=== PATIENT | female | born 1955 | race Caucasian/White ===

== ENCOUNTER → 2016-10-24 | Outpatient (CLI) | payer OTHER ==
[2016-10-24 09:37] VITALS: RESP 14
[2016-10-24 09:44] VITALS: BP 153/89; PULSE 80
--- NOTE | 2016-10-24 11:32 | CT ---
EXAMINATION TYPE: CT chest w con DATE OF EXAM: 10/24/2016 10:00 AM COMPARISON: NONE HISTORY: Patient complains of difficulty breathing with a history of breast CA. CT DLP: 644 mGycm Automated exposure control for dose reduction was used. CONTRAST: CT scan of the chest is performed with IV Contrast, patient injected with 100 mL of Omnipaque 300. FINDINGS: There has been a previous left mastectomy. The lungs are clear. No parenchymal nodules are seen. No significant interstitial changes noted. There is no significant axillary, internal mammary, mediastinal or hilar adenopathy. There is no pleu ral or pericardial fluid. The heart is at the upper limits of normal in size. Visualized upper abdominal structures are normal. There is mild hypertrophic spondylosis within the spine. No bony destructive lesion is seen. IMPRESSION: 1. STATUS POST LEFT MASTECTOMY. 2. NO SIGNIFICANT ABNORMALITY SEEN ON CHEST CT. 3. MILD DEGENERATIVE CHANGE OF THE SPINE.
== END | disposition home or self-care (01) ==
LOC: RADCTMAIN 08:52
PROVIDERS: ATTEND Family Medicine
DX: R07.81 Pleurodynia (principal)
CPT/HCPCS: 71260; Q9967

== ENCOUNTER 2018-12-27 18:48 | Emergency (ER) | payer BC, MEDICARE ==
[2018-12-27 19:03] VITALS: RESP 18
--- NOTE | 2018-12-27 19:24 | ED ---
General Adult HPI - General Chief complaint: Back Pain/Injury Stated complaint: Poss kidney stones Time Seen by Provider: 12/27/18 19:07 Source: patient, RN notes reviewed, old records reviewed Mode of arrival: ambulatory Limitations: no limitations - History of Present Illness Initial comments: 63-year-old female patient past medical history of breast cancer approximately 10 years ago status post double mastectomy, in remission, presents to ED with chief complaint of approximately 1 month of lumbar back pain. Patient reports that this began after working on a tractor. Patient reports that the pain is in her right paralumbar back region and radiates to her midline lumbar spine. This area is nontender to palpation. Patient denies any flank pain, patient denies any dysuria or hematuria. Patient denies any loss of bowel or bladder control, saddle anesthesia, lower extremity weakness. Patient denies any anterior abdominal pain. Patient denies all other complaints. Systemic: Pt denies fatigue, fever/chills, rash. Pt denies weakness, night sweats, weight loss. Neuro: Pt denies headache, visual disturbances, syncope or pre-syncope. HEENT: Pt denies ocular discharge or irritation, otalgia, rhinorrhea, pharyngitis or notable lymphadenopathy. Cardiopulmonary: Pt denies chest pain, SOB, heart palpitations, dyspnea on exertion. Abdominal/GI: Pt denies abdominal pain, n/v/d. : Pt denies dysuria, burning w/ urination, frequency/urgency. Denies new onset urinary or bowel incontinence. MSK: Pt denies loss of strength or function in extremities. Neuro: Pt denies new onset weakness, paresthesias. - Related Data Home Medications Medication Instructions Recorded Confirmed Acetaminophen [Tylenol Arthritis] 650 mg PO Q8H 12/27/18 12/27/18 Albuterol Nebulized [Ventolin 2.5 mg INHALATION RT-QID PRN 12/27/18 12/27/18 Nebulized] Glimepiride [Amaryl] 2 mg PO BID 12/27/18 12/27/18 Ipratropium Nebulized [Atrovent 0.5 mg INHALATION RT-QID PRN 12/27/18 12/27/18 Nebulized 0.2 MG/ML] Mometasone/Formoterol [Dulera 100 2 puff INHALATION RT-BID 12/27/18 12/27/18 Mcg/5 Mcg Inhaler] Torsemide [Demadex] 20 mg PO DAILY PRN 12/27/18 12/27/18 Previous Rx's Medication Instructions Recorded Cyclobenzaprine [Flexeril] 1 - 2 tab PO TID #20 tablet 12/27/18 Allergies Allergy/AdvReac Type Severity Reaction Status Date / Time adhesive tape Allergy Rash/Hives Verified 12/27/18 19:31 alcohol Allergy Rash/Hives Verified 12/27/18 19:31 cephalexin [From Keflex] Allergy Rash/Hives Verified 12/27/18 19:31 Iodinated Contrast- Oral and Allergy Rash/Hives Verified 12/27/18 19:31 IV Dye meperidine [From Demerol] Allergy Rash/Hives Verified 12/27/18 19:31 methylprednisolone Allergy Rash/Hives Verified 12/27/18 19:31 [From Medrol] nystatin Allergy Rash/Hives Verified 12/27/18 19:31 Penicillins Allergy Rash/Hives Verified 12/27/18 19:31 Sulfa (Sulfonamide Allergy Rash/Hives Verified 12/27/18 19:31 Antibiotics) Review of Systems ROS Statement: Those systems with pertinent positive or pertinent negative responses have been documented in the HPI. ROS Other: All systems not noted in ROS Statement are negative. Past Medical History Past Medical History: Coronary Artery Disease (CAD), Diabetes Mellitus Additional Past Medical History / Comment(s): breast cancer History of Any Multi-Drug Resistant Organisms: None Reported Past Surgical History: Breast Surgery, Hysterectomy Past Psychological History: No Psychological Hx Reported Smoking Status: Never smoker Past Alcohol Use History: None Reported Past Drug Use History: None Reported General Exam - General Exam Comments Initial Comments: Constitutional: NAD, AOX3, Pt has pleasant affect. HEENT: NC/AT, trachea midline, neck supple, no lymphadenopathy. Posterior pharynx non erythematous, without exudates. External ears appear normal, without discharge. Mucous membranes moist. Eyes PERRLA, EOM intact. There is no scleral icterus. No pallor noted. Cardiopulmonary: RRR, no murmurs, rubs or gallops, no JVD noted. Lungs CTAB in anterior and posterior celeste. No peripheral edema. Abdominal exam: Abdomen soft and non-distended. Abdomen non-tender to palpation in all 4 quadrants. Bowel sounds active in LLQ. No hepatosplenomegaly. No ecchymosis Neuro: CN II-XII grossly intact. No nuchal rigidity. No raccon eyes, no ivy sign, no hemotympanum. No cervical spinal tenderness. MSK: No midline cervical thoracic lumbar tenderness. Straight-leg raise negative bilaterally. No posterior calf tenderness bilaterally, homans sign negative bilaterally. Posterior tibialis and radial pulse +2 bilaterally. Sensation intact in upper and lower extremities. Full active ROM in upper and lower extremities, 5/5 stregnth. Limitations: no limitations Course Vital Signs 12/27/18 18:57 Temperature 98.3 F Pulse Rate 73 Respiratory 18 Rate Blood Pressure 144/77 O2 Sat by Pulse 94 L Oximetry Medical Decision Making - Medical Decision Making 63-year-old female patient with past medical history of breast cancer in remission presents to ED if 1 month of lumbar back pain. Patient works that she has right paralumbar as well as midline lumbar back pain after working on a tractor approximately one month ago. Denies any red flag symptoms. Patient vital signs stable, afebrile. Physical exam didn't display acute pathology. Plain film of lumbar spine displayed mild multilevel degenerative disc disease, more moderate anterior endplate spondylolysis at L1-L2. Facet arthropathy lower lumbar spine. No vertebral compression, collapse or malalignment. UA was not impressive. Patient was discharged with muscle relaxer. Patient to follow up with primary care provider as well as orthopedic consult. Patient return to ER if condition worsens. Case discussed with Dr. Pak. - Lab Data Lab Results 12/27/18 Range/Units 19:30 Urine Color Yellow Urine Appearance Cloudy H (Clear) Urine pH 5.5 (5.0-8.0) Ur Specific Wellman 1.042 H (1.001-1.035) Urine Protein Trace H (Negative) Urine Glucose (UA) Negative (Negative) Urine Ketones Negative (Negative) Urine Blood Negative (Negative) Urine Nitrite Negative (Negative) Urine Bilirubin Negative (Negative) Urine Urobilinogen <2.0 (<2.0) mg/dL Ur Leukocyte Esterase Negative (Negative) Urine WBC 3 (0-5) /hpf Ur Squamous Epith Cells 7 H (0-4) /hpf Urine Bacteria Rare H (None) /hpf Urine Mucus Many H (None) /hpf Disposition Clinical Impression: Lumbar back pain Disposition: HOME SELF-CARE Condition: Stable Instructions (If sedation given, give patient instructions): Acute Low Back Pain (ED) Additional Instructions: Patient to adhere to previously discussed treatment plan and will take medication(s) as directed. Patient to follow up with PCP in 1-2 days. Patient to return to ED if symptoms do not improve. Follow-up with primary care provider orthopedic consult tomorrow. Return to ER physician worsens. Prescriptions: Cyclobenzaprine [Flexeril] 1 - 2 tab PO TID #20 tablet Is patient prescribed a controlled substance at d/c from ED?: No Referrals: Héctor Steen MD [Primary Care Provider] - 1-2 days Andre Patton DO [Doctor of Osteopathic Medicine] - 1-2 days
--- NOTE | 2018-12-27 20:01 | XR ---
EXAMINATION TYPE: XR lumbar spine 2 or 3V DATE OF EXAM: 12/27/2018 COMPARISON: NONE HISTORY: 63-year-old female with chronic back pain TECHNIQUE: 3 views FINDINGS: Leftward truncal shift. Anterior endplate spondylosis L-1-L2. Mild multilevel degenerative disc disease. Facet arthropathy lower lumbar spine. Vertebral body heights are preserved and alignmen t is maintained. IMPRESSION: 1. Mild multilevel degenerative disc disease. More moderate anterior endplate spondylosis at L1-L2. 2. Facet arthropathy lower lumbar spine. 3. No vertebral compression collapse or malalignment.
[2018-12-27 20:12] LABS: Appearance,Urine Cloudy (Clear); Bacteria,Urine Rare /hpf; Bilirubin,Urine Negative (Negative); Blood,Urine Negative (Negative); Color,Urine Yellow; Glucose,Urine (UA) Negative (Negative); Ketones,Urine Negative (Negative); Leukocyte Esterase,Urine Negative (Negative); Mucus,Urine Many /hpf; Nitrite,Urine Negative (Negative); PH, Urine 5.5 (5.0-8.0); Protein,Urine Trace (Negative); Specific Gravity,Urine 1.042 (1.001-1.035); Squamous Epithelial Cell,Urine 7 /hpf (0-4); Urobilinogen,Urine <2.0 mg/dL (<2.0); WBC,Urine 3 /hpf (0-5)
[2018-12-27 20:59] VITALS: BP 163/94; PULSE 68; TEMP 98
== END 2018-12-27 20:59 | disposition home or self-care (01) ==
LOC: EC 18:48
DX: M51.36 Other intervertebral disc degeneration, lumbar region (principal); M47.896 Other spondylosis, lumbar region; M46.96 Unspecified inflammatory spondylopathy, lumbar region; E11.9 Type 2 diabetes mellitus without complications; Z85.3 Personal history of malignant neoplasm of breast; Z79.84 Long term (current) use of oral hypoglycemic drugs; Z79.51 Long term (current) use of inhaled steroids; Z79.899 Other long term (current) drug therapy; Z91.048 Other nonmedicinal substance allergy status; Z88.1 Allergy status to other antibiotic agents; Z91.041 Radiographic dye allergy status; Z88.5 Allergy status to narcotic agent; Z88.8 Allergy status to other drugs, medicaments and biological substances; Z88.0 Allergy status to penicillin; Z88.2 Allergy status to sulfonamides
CPT/HCPCS: 72100; 81001; 99284

== ENCOUNTER → 2018-12-29 | Outpatient (CLI) | payer BC ==
--- NOTE | 2018-12-29 13:04 | US ---
EXAMINATION TYPE: US abdomen complete DATE OF EXAM: 12/29/2018 COMPARISON: NONE CLINICAL HISTORY: R10.9 abdominal pain. Back pain and nausea x 2 weeks EXAM MEASUREMENTS: Liver Length: 25.0 cm Gallbladder Wall: 0.2 cm CBD: 0.6 cm Spleen: 11.3 cm Right Kidney: 13.7 x 4.7 x 5.9 cm Left Kidney: 11.9 x 5.8 x 5.4 cm Difficult and limited study due to patient body habitus Pancreas: visualized portions wnl, limited by overlying midline bowel gas Liver: enlarged, attenuating, heterogeneous, decreased visualization of vessels Gallbladder: wnl Evidence for sonographic Farnsworth's sign: no CBD: borderline dilated at 0.6cm Spleen: wnl Right Kidney: no hydronephrosis or masses seen Left Kidney: no hydronephrosis or masses seen Upper IVC: wnl Abd Aorta: visualized portions wnl, limited by overlying midline bowel gas Kidneys show normal cortical medullary differentiation. There is no ascites. IMPRESSION: Correlate for hepatic steatosis, hepatocellular disease. Technologist reports hepatomegal y. Exam is limited.
== END | disposition home or self-care (01) ==
LOC: RADUSMAIN 07:50
PROVIDERS: ATTEND Internal Medicine
DX: R16.0 Hepatomegaly, not elsewhere classified (principal)
CPT/HCPCS: 76700

== ENCOUNTER 2019-05-27 12:10 | Emergency (ER) | payer BC, MEDICARE, OTHER ==
[2019-05-27 12:19] VITALS: BP 153/82; PULSE 70; RESP 18; TEMP 97.7
--- NOTE | 2019-05-27 12:39 | ED ---
General Adult HPI - General Chief complaint: Fall Stated complaint: Fall - [facility] Time Seen by Provider: 05/27/19 12:15 Source: patient, RN notes reviewed, old records reviewed Mode of arrival: ambulatory Limitations: no limitations - History of Present Illness Initial comments: This is a 63-year-old female who presents to the emergency department complain ing that she tripped on a curb and fell. Patient complains of right knee pain and right thenar pain. Patient denies any head trauma patient denies any neck trauma. Patient does any chest back or abdomen pain. Patient denies any upper extremity pain. Patient states she did scrape her other knee but it doesn't hurt she has full range of motion. Patient does not want anything currently for pain. - Related Data Home Medications Medication Instructions Recorded Confirmed Acetaminophen [Tylenol Arthritis] 650 mg PO Q8H 12/27/18 12/27/18 Albuterol Nebulized [Ventolin 2.5 mg INHALATION RT-QID PRN 12/27/18 12/27/18 Nebulized] Glimepiride [Amaryl] 2 mg PO BID 12/27/18 12/27/18 Ipratropium Nebulized [Atrovent 0.5 mg INHALATION RT-QID PRN 12/27/18 12/27/18 Nebulized 0.2 MG/ML] Mometasone/Formoterol [Dulera 100 2 puff INHALATION RT-BID 12/27/18 12/27/18 Mcg/5 Mcg Inhaler] Torsemide [Demadex] 20 mg PO DAILY PRN 12/27/18 12/27/18 Previous Rx's Medication Instructions Recorded Cyclobenzaprine [Flexeril] 1 - 2 tab PO TID #20 tablet 12/27/18 Allergies Allergy/AdvReac Type Severity Reaction Status Date / Time adhesive tape Allergy Rash/Hives Verified 12/27/18 19:31 alcohol Allergy Rash/Hives Verified 12/27/18 19:31 cephalexin [From Keflex] Allergy Rash/Hives Verified 12/27/18 19:31 Iodinated Contrast Media Allergy Rash/Hives Verified 12/27/18 19:31 [Iodinated Contrast- Oral and IV Dye] meperidine [From Demerol] Allergy Rash/Hives Verified 12/27/18 19:31 methylprednisolone Allergy Rash/Hives Verified 12/27/18 19:31 [From Medrol] nystatin Allergy Rash/Hives Verified 12/27/18 19:31 Penicillins Allergy Rash/Hives Verified 12/27/18 19:31 Sulfa (Sulfonamide Allergy Rash/Hives Verified 12/27/18 19:31 Antibiotics) Review of Systems ROS Statement: Those systems with pertinent positive or pertinent negative responses have been documented in the HPI. ROS Other: All systems not noted in ROS Statement are negative. Past Medical History Past Medical History: Coronary Artery Disease (CAD), Diabetes Mellitus Additional Past Medical History / Comment(s): breast cancer History of Any Multi-Drug Resistant Organisms: None Reported Past Surgical History: Breast Surgery, Hysterectomy Past Psychological History: No Psychological Hx Reported Smoking Status: Never smoker Past Alcohol Use History: None Reported Past Drug Use History: None Reported General Exam - General Exam Comments Initial Comments: GENERAL Patient is well-developed and well-nourished. Patient is in mild distress. EYES Patient's pupils are equal and round. Extraocular motion is intact SKIN Unremarkable NEURO The patient is alert and oriented 3 PYSCH Patient has normal interpersonal interactions. MUSCULOSKELETAL Patient has tenderness to the right thenar aspect of the hand. Patient also is significant tenderness to the inferior lateral aspect of the right knee where there is some slight swelling. Patient's knee Does not appear to be tender. Patient has no ligament laxity. Limitations: no limitations Course Vital Signs 05/27/19 12:15 Temperature 97.7 F Pulse Rate 70 Respiratory 18 Rate Blood Pressure 153/82 O2 Sat by Pulse 95 Oximetry Medical Decision Making - Medical Decision Making X-ray of the knee and hand show no acute fracture. Patient opted not to have any kind of wrap or brace put on. Disposition Clinical Impression: Fall, Knee contusion, Hand contusion Disposition: HOME SELF-CARE Condition: Good Instructions (If sedation given, give patient instructions): Fall Prevention for Older Adults (ED) Additional Instructions: Patient should take Tylenol for pain. Is patient prescribed a controlled substance at d/c from ED?: No Referrals: Héctor Steen MD [Primary Care Provider] - 1-2 days Time of Disposition: 14:44
--- NOTE | 2019-05-27 14:33 | XR ---
EXAMINATION TYPE: XR hand complete RT DATE OF EXAM: 05/27/2019 COMPARISON: 01/11/2010 HISTORY: 63-year-old female trauma, fall, pain TECHNIQUE: 3 views FINDINGS: Moderate to advanced degenerative change at the triscaphe joint and mild to moderate at the first CMC joint. Bony overlap of the fingers on the lateral view limits assessment. No acute fracture, subluxa tion, or dislocation seen. 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 No acute osseo us abnormality seen.
--- NOTE | 2019-05-27 14:35 | XR ---
EXAMINATION TYPE: XR knee complete RT DATE OF EXAM: 05/27/2019 COMPARISON: NONE HISTORY: 63-year-old female trauma, fall, pain TECHNIQUE: 3 views FINDINGS: Generalized soft tissue swelling lower knee and upper leg. No knee joint effusion. Extensor mechanism appears intact. Mild degenerative spurring patellofemoral compartment and more moderate at the media l compartment. No acute fracture, subluxation, or dislocation. IMPRESSION: Soft tissue swelling. Degenerative spurring in the patellofemoral and medial compartments. No knee arun int effusion or acute osseous abnormality seen.
== END 2019-05-27 15:00 | disposition home or self-care (01) ==
LOC: EC 12:10
DX: S80.01XA Contusion of right knee, initial encounter (principal); S60.221S Contusion of right hand, sequela; E11.9 Type 2 diabetes mellitus without complications; Z88.0 Allergy status to penicillin; Z88.1 Allergy status to other antibiotic agents; Z88.2 Allergy status to sulfonamides; Z88.5 Allergy status to narcotic agent; Z88.8 Allergy status to other drugs, medicaments and biological substances; Z91.041 Radiographic dye allergy status; Z91.048 Other nonmedicinal substance allergy status; Z79.51 Long term (current) use of inhaled steroids; Z79.84 Long term (current) use of oral hypoglycemic drugs; Z79.891 Long term (current) use of opiate analgesic; Z85.3 Personal history of malignant neoplasm of breast; Z98.890 Other specified postprocedural states; W01.0XXA Fall on same level from slipping, tripping and stumbling without subsequent striking against object, initial encounter; Y92.480 Sidewalk as the place of occurrence of the external cause; Y99.0 Civilian activity done for income or pay
CPT/HCPCS: 99284

== ENCOUNTER → 2019-06-04 | Outpatient (CLI) | payer OTHER ==
--- NOTE | 2019-06-04 11:58 | US ---
EXAMINATION TYPE: US venous doppler duplex LE RT DATE OF EXAM: 06/04/2019 11:43 AM COMPARISON: NONE CLINICAL HISTORY: S60.221D, S80.01XD, M79.604. Patient fell 05/27- bruising. No swelling. No blood thinners. SIDE PERFORMED: Right TECHNIQUE: The lower extremity deep venous system is examined utilizing real time linear array sonog sherlyn with graded compression, doppler sonography and color-flow sonography. VESSELS IMAGED: External Iliac Vein (EIV) Common Femoral Vein Deep Femoral Vein Greater Saphenous Vein * Femoral Vein Popliteal Vein Small Saphenous Vein * Proximal Calf Veins (* superficial vessels) Grayscale, color doppler, spectral doppler imaging performed of the deep veins of the right lower ext remity. There is normal flow, compressibility, vascular waveforms. Right Leg: Negative for DVT IMPRESSION: No sonographic evidence of deep venous thrombosis within the right lower extremity.
--- NOTE | 2019-06-04 12:14 | XR ---
EXAMINATION TYPE: XR tibia fibula RT DATE OF EXAM: 06/04/2019 COMPARISON: NONE HISTORY: Pain TECHNIQUE: Two views are submitted. FINDINGS: The osseous structures are intact. There is arthropathy of the knee joint. Soft tissue calcifications are likely vascular.. IMPRESSION: 1. No acute osseous abnormality.
== END | disposition home or self-care (01) ==
LOC: RADUSWWP 11:21
PROVIDERS: ATTEND Emergency Medicine
DX: M79.604 Pain in right leg (principal); S60.221D Contusion of right hand, subsequent encounter; S80.01XD Contusion of right knee, subsequent encounter